=== PATIENT | male | born 1985 | race Caucasian/White ===

== ENCOUNTER 2018-02-21 21:25 | Emergency (ER) | payer MEDICARE, MEDICAID ==
[~2018-02-21] VITALS: Ht 182.9 cm; Wt 59.0 kg
[~2018-02-21 21:25] MED LIST: COLE3.753 PO; ESOM40CA PO
[2018-02-21] MEDS ORDERED: LIDOCAINE 1% VIAL ONE (21:45)
[2018-02-21] MEDS ORDERED: TRIPLE ANTIBIOTIC OINTMENT TP ONE (21:48)
[2018-02-21] MEDS ORDERED: BOOSTRIX VACCINE SYRINGE IM STA (21:56)
--- NOTE | 2018-02-21 22:00 | ER.PDOC ---
General Chief Complaint: Extremities Stated Complaint: LAC ON LEG Time seen by MD: 21:56 Source: patient Exam Limitations: no limitations History of Present Illness Initial Comments Laceration to right knee Onset: just prior to arrival Where: home Context: laceration Severity: mild Allergies: Coded Allergies: No Known Allergies (Unverified , 09/26/14) Home Meds Reported Medications Colesevelam Hcl (WELCHOL) 3.75 Gm Powd.pack, 1.25 GM PO DAILY 09/26/14 Esomeprazole Magnesium (NEXIUM) 40 Mg Capsule.dr, 40 MG PO DAILY 09/26/14 Past Medical History Medical History: other Surgical History: back Social History Smoking: non-smoker Alcohol Use: none Drug Use: none Review of Systems Constitutional: no symptoms reported EENTM: no symptoms reported Respiratory: no symptoms reported Cardiovascular: no symptoms reported Gastrointestinal: no symptoms reported Skin: see HPI All Other Systems: Reviewed and Negative Physical Exam General Appearance: Alert, No Apparent Distress Foot: nml inspection, non-tender, nml color/temp, skin intact Ankle: nml inspection, non-tender, nml ROM, no joint swelling, skin intact Thigh/Hip: nml inspection 1 - Lac Gait: normal Neuro/Vasc/Tendon: sensation nml, motor nml, no vascular compromise, tendon function nml Head/ENT: nml inspection, pharynx nml Neck/Back: nml inspection, non-tender Abdomen: non-tender, pelvis stable ED LACERATION WOUND REPAIR # of Wounds/Lacerations Presen: 1 Wound Location & Length (Requi: Right knee Wound Length (cm): 1 Wound cleaned: betadine Anesthesia: 1% Lidocaine Volume Anesthetic (ccs): 5 Wound's Depth, Shape: linear Irrigated w/ Saline (ccs): 20 Wound Repaired With: sutures Suture Size/Type: 4:0, ethilon Suture Style: interupted Number of Sutures: 3 Sterile Dressing Applied?: Yes Departure Time of Disposition: 21:58 Disposition: 01 HOME, SELF-CARE Impression: Primary Impression: Laceration Condition: Stable Referrals: Sue REESE (PCP) PRIMARY CARE PROVIDER Additional Instructions: Apply Neosporin daily Remove sutures in 7 days at your PCP or ED Duration or Time Spent with Pa: 50 mins DAISY MARION MD Feb 21, 2018 22:00
--- NOTE | 2018-02-21 22:00 | NUR ---
DRESSING NEOSPORIN AND TEFLA DRESSING APPLIED OVER 3 SUTURES TO RIGHT MEDIAL KNEE.
--- NOTE | 2018-02-21 22:03 | NUR ---
TETANUS BOOSTRIX GIVEN TO LEFT DELTOID LOT: [id number] EXP: 06/02/2020
[2018-02-21 22:20] VITALS: BP 136/72
== END 2018-02-21 22:17 | disposition home or self-care (01) ==
LOC: ER 21:25
DX: S81.011A Laceration without foreign body, right knee, initial encounter (principal); Z79.899 Other long term (current) drug therapy; X58.XXXA Exposure to other specified factors, initial encounter; Y93.89 Activity, other specified; Y92.098 Other place in other non-institutional residence as the place of occurrence of the external cause; Y99.8 Other external cause status
CPT/HCPCS: 12001; 90471; 90714; 99283; J2001

== ENCOUNTER 2018-02-27 10:48 | Emergency (ER) | payer MEDICARE, MEDICAID ==
[~2018-02-27] VITALS: Ht 190.5 cm; Wt 61.2 kg
[2018-02-27 11:07] VITALS: BP 28/82
[2018-02-27 11:09] VITALS: BP 28/82
--- NOTE | 2018-02-27 11:16 | ER.PDOC ---
General Chief Complaint: Wound Recheck/Suture Removal Stated Complaint: WOUND CHECK Time seen by MD: 11:11 Source: patient Exam Limitations: no limitations History of Present Illness Treated In Another ED/Practice: No Days Prior To Arrival: 7 Previous ED Treatment: laceration repair Symptoms Since Procedure: no complaints Allergies: Coded Allergies: No Known Allergies (Unverified , 09/26/14) Home Meds Reported Medications Colesevelam Hcl (WELCHOL) 3.75 Gm Powd.pack, 1.25 GM PO DAILY 09/26/14 Esomeprazole Magnesium (NEXIUM) 40 Mg Capsule.dr, 40 MG PO DAILY 09/26/14 Past Medical History Medical History: no pertinent history Surgical History: back Family History Significant Family History: no pertinent family hx Social History Smoking: non-smoker Alcohol Use: none Drug Use: none Reviewed Nursing Reviewed: Nursing Assessment Constitutional: no symptoms reported EENTM: no symptoms reported Respiratory: no symptoms reported Cardiovascular: no symptoms reported Gastrointestinal: no symptoms reported Genitourinary: no symptoms reported Musculoskeletal: no symptoms reported Skin: no symptoms reported Psychiatric/Neurological: no symptoms reported Endocrine: no symptoms reported Hematologic/Lymphatic: no symptoms reported Physical Exam General Appearance: no distress Neuro/Vascular/Tendon: no vascular compromise, sensation nml, no tendon injury , nml ROM Skin: no infection, healing wound Head/ENT: nml inspection Neck/Back: nml inspection Respiratory: chest non-tender CVS: reg. rate & rhythm Comments well appearing wound on the anterior medial aspect of L leg, inferior to medial tibial plateau, 3 sutures removed, no complications Departure Time of Disposition: 11:17 Disposition: 01 HOME, SELF-CARE Impression: Primary Impression: Visit for suture removal Condition: Stable Referrals: JAZIEL AMADOR NP (PCP) PRIMARY CARE PROVIDER Additional Instructions: Follow up with your primary care doctor as needed, return to the ER for signs of infection, redness, swelling or foul odor. Duration or Time Spent with Pa: 30 mins HEBERT FRANCO MD Feb 27, 2018 11:16
== END 2018-02-27 11:25 | disposition home or self-care (01) ==
LOC: ER 10:48
DX: S81.812D Laceration without foreign body, left lower leg, subsequent encounter (principal); X58.XXXD Exposure to other specified factors, subsequent encounter; Z79.899 Other long term (current) drug therapy
CPT/HCPCS: 99281

== ENCOUNTER 2018-08-13 13:48 | Emergency (ER) | payer MEDICARE, MEDICAID ==
[~2018-08-13] VITALS: Ht 182.9 cm; Wt 58.1 kg
--- NOTE | 2018-08-13 13:53 | NUR ---
ARRIVAL PT ARRIVED AMBULATORY TO ER 5 C/O LEFT WRIST PAIN. PT STATES FELL OFF OF A TRAILER DUE TO HIGH WIND. POSSIBLE DEFORMITY NOTED TO LEFT WRIST. WRIST ELEVATED, PT IN POSITION OF COMFORT. EDP NOTIFIED OF PT ARRIVAL.
[2018-08-13 14:03] VITALS: BP 125/93
--- NOTE | 2018-08-13 14:04 | ER.PDOC ---
General Chief Complaint: Extremities Stated Complaint: LEFT HAND INJURY Time seen by MD: 14:00 Source: patient Exam Limitations: no limitations History of Present Illness Initial Comments Pt fell on his left UE, which is deformed on wrist Occurred: just prior to arrival Where: street Severity: moderate Context: fall Allergies: Coded Allergies: No Known Allergies (Unverified , 09/26/14) Home Meds Reported Medications Colesevelam Hcl (WELCHOL) 3.75 Gm Powd.pack, 1.25 GM PO DAILY 09/26/14 Esomeprazole Magnesium (NEXIUM) 40 Mg Capsule.dr, 40 MG PO DAILY 09/26/14 Past Medical History Surgical History: back Social History Smoking: non-smoker Alcohol Use: none Drug Use: none Review of Systems Constitutional: no symptoms reported Musculoskeletal: see HPI All Other Systems: Reviewed and Negative Physical Exam General Appearance: Alert, No Apparent Distress Hand: nml inspection, non-tender, no evidence FB Wrist: tenderness, tenderness snuff box, swelling, deformity (left wrist) Neuro: sensation nml, motor nml Vascular: no vascular compromise Tendons: tendon function nml Forearm/Elbow/Arm: uninjured above wrist Skin: warm/dry Head/ENT: nml inspection, pharynx nml Neck/Back: nml inspection, non-tender Resp/CVS: no resp distress, lungs clear, heart sounds nml, reg. rate & rhythm Abdomen: non-tender, no organomegaly Results/Orders Results/Orders Administered Medications Medications (Trade) Dose Ordered Sig/Corinne Route PRN Reason Start Time Stop Time Status Last Admin Dose Admin Ketorolac Tromethamine (Toradol) 60 mg OT ONCE IM 08/13/18 14:30 08/13/18 14:31 08/13/18 14:14 Departure Time of Disposition: 14:17 Disposition: 01 HOME, SELF-CARE Impression: Primary Impression: Wrist fracture, left Condition: Stable Patient Instructions: Wrist Fracture Referrals: JAZIEL AMADOR NP (PCP) PRIMARY CARE PROVIDER ELISSA RAYA MD Duration or Time Spent with Pa: CECILIA PENA MD Aug 13, 2018 14:04
[2018-08-13] MEDS ORDERED: TORADOL ONE (14:08)
[2018-08-13] MEDS ORDERED: TORADOL IM ONE (14:30)
--- NOTE | 2018-08-13 14:42 | DIREP ---
PROCEDURE:XRAY WRIST MIN 3VW-LT COMPARISON:None. INDICATIONS:Deformity, fall FINDINGS: BONES:Three views of the left wrist. Acute comminuted fracture of the distal left radial metaphysis with extension of the fracture line into the articular surface of the left radius. There is slight dorsal displaced of the distal fracture segments identified. Fracture is also seen involving the tip of the ulnar styloid. The fracture of the distal left radius could be impacted. No acute fracture of the proximal or the distal carpal bones is seen. JOINTS:Normal. SOFT TISSUES:Normal. OTHER:No additional findings. CONCLUSION:Acute impacted fracture involving the distal left radius with the fracture line extending to involve the articular surface. Fracture also identified involving the tip of the ulnar styloid. Slight dorsal displacement of the distal fracture segments of the radius. Dictated by: Tyrone Garber MD on 08/13/2018 at 02:40 PM
[2018-08-13 14:48] VITALS: BP 134/76
[2018-08-17] MEDS ORDERED: LOPE2CAP94 PO (16:14)
[2018-08-17] MEDS ORDERED: ACET-685 PO (16:14)
[2018-08-17] MEDS ORDERED: IBUP-1127 PO (16:14)
== END 2018-08-13 14:40 | disposition home or self-care (01) ==
LOC: ER 13:48
DX: S52.612A Displaced fracture of left ulna styloid process, initial encounter for closed fracture (principal); S52.592A Other fractures of lower end of left radius, initial encounter for closed fracture; Z79.899 Other long term (current) drug therapy; W19.XXXA Unspecified fall, initial encounter; Y93.89 Activity, other specified; Y92.488 Other paved roadways as the place of occurrence of the external cause; Y99.8 Other external cause status
CPT/HCPCS: 29125; 73110; 96372; 99283; J1885

== ENCOUNTER 2018-08-18 00:15 | Day surgery (SDC) | payer MEDICARE, MEDICAID ==
[2018-08-17 16:16] VITALS: BP 124/81
--- NOTE | 2018-08-17 17:59 | PCM.EKG ---
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
[2018-08-17 21:11] LABS: BASOPHIL # 0.1 10^3/uL (0.0-0.1); BASOPHIL % 0.9 % (0.0-0.2); EOSINOPHIL # 0.1 10^3/uL (0.0-0.2); EOSINOPHIL % 1.3 % (0.0-5.0); HEMOGLOBIN 13.8 g/dL (13.9-16.3); LYMPHOCYTES # 1.9 10^3/uL (1.0-4.8); LYMPHOCYTES % 27.5 % (24.0-44.0); MEAN CELL HGB 30.1 pg (26-34); MEAN CELL HGB CONCENTRATION 33.1 g/dL (33-37); MEAN CORP VOLUME 90.8 fL (78-100); MEAN PLATELET VOLUME 9.9 fL (7.8-11.0); MONOCYTES # 0.5 10^3/uL (0.3-0.8); MONOCYTES % 7.4 % (5.0-12.0); NEUTROPHIL # 4.4 10^3/uL (1.8-7.7); NEUTROPHILS % 62.8 % (41.0-85.0); RED CELL DISTRIBUTION WIDTH 12.8 % (11.5-14.5)
[2018-08-17 21:13] LABS: CARBON DIOXIDE 31.2 mmol/L (20.0-32)
[2018-08-18] VITALS (13 sets, daily range): BP systolic 96–134; BP diastolic 34–85
[~2018-08-18] VITALS: Ht 180.3 cm; Wt 55.8 kg
[~2018-08-18 00:15] MED LIST changes: +ACET-685 PO; +IBUP-1127 PO; +LOPE2CAP94 PO
[2018-08-18] MEDS ORDERED: NS 100ML 100 ML IV ONE (05:39)
[2018-08-18] MEDS ORDERED: LACTATED RINGERS 1,000 ML ONE ×3 (05:39→10:19)
[2018-08-18] MEDS ORDERED: ANCEF ONE (05:42)
[2018-08-18] MEDS ORDERED: NAROPIN 0.5% 5 MG/ML VIAL ONE (06:52)
[2018-08-18] MEDS ORDERED: LIDOCAINE 2% VIAL ONE (06:52)
[2018-08-18] MEDS ORDERED: DECADRON ONE (06:52)
[2018-08-18] MEDS ORDERED: ZOFRAN ONE (06:53)
[2018-08-18] MEDS ORDERED: VERSED ONE (06:53)
[2018-08-18] MEDS ORDERED: SUBLIMAZE ONE (06:53)
[2018-08-18] MEDS ORDERED: DILAUDID ONE (06:53)
[2018-08-18] MEDS ORDERED: PRECEDEX IV ONE (06:53)
[2018-08-18] MEDS ORDERED: DIPRIVAN IV ONE (06:53)
[2018-08-18] MEDS ORDERED: TORADOL ONE (06:54)
[2018-08-18] MEDS ORDERED: DICY10CA3 PO (09:12)
[2018-08-18] MEDS: LACTATED RINGERS 1,000 ML IV SCH ×2 (09:23→10:35)
[2018-08-18] MEDS ORDERED: SODIUM CHLORIDE IR ONE (10:52)
[2018-08-18] MEDS ORDERED: XYLOCAINE 2%-EPI 1:100,000 ONE (10:53)
[2018-08-18] MEDS ORDERED: QUELICIN ONE (13:15)
[2018-08-18] MEDS ORDERED: ZOFRAN IV PRN (13:30)
[2018-08-18] MEDS ORDERED: VENTOLIN IH PRN (13:30)
[2018-08-18] MEDS ORDERED: BENADRYL IV PRN (13:30)
[2018-08-18] MEDS ORDERED: TRAM-47 PO (13:30)
[2018-08-18] MEDS ORDERED: PHENERGAN IV PRN (13:30)
[2018-08-18] MEDS ORDERED: DILAUDID IV PRN (13:30)
--- NOTE | 2018-08-18 13:46 | OPH ---
DATE OF SURGERY: 08/18/2018 PREOPERATIVE DIAGNOSIS: Comminuted displaced intraarticular fracture of the left distal radius. POSTOPERATIVE DIAGNOSIS: Comminuted displaced intraarticular fracture of the left distal radius. OPERATIVE PROCEDURE: Open reduction and internal fixation of left distal radius fracture with a Synthes dorsal bridging plate. SURGEON: Smooth Bal M.D. ANESTHESIA: LMA. TOURNIQUET TIME: 79 minutes at 250 mmHg. DRAINS: None. BLOOD LOSS: 10 mL. DESCRIPTION OF INDICATIONS: The patient is a 33-year-old right hand dominant male who fell off the back of a trailer about 5 days ago and suffered a comminuted displaced intraarticular fracture of the left distal radius. He was seen in the office yesterday where the patient was noted to have marked comminution, especially dorsally with dorsal angulation of the fracture as well as impaction. The patient was given conservative versus surgical options and he opted for open reduction and internal fixation. DESCRIPTION OF PROCEDURE: The patient was placed on the operating table in the supine position. An LMA anesthetic was induced without difficulty. The patient had an allergic reaction to the Ancef and therefore it was stopped and he was given some Benadryl and allergic reaction resolved quickly. The patient had the left upper extremity padded. No tourniquet was applied. Left upper extremity was then sterilely prepped and draped. The patient had the fracture reduced with traction and manipulation. AP and lateral C-arm views showed satisfactory reduction. The patient then had a dorsal incision made along the radial border of the long finger metacarpal radial to the extensor tendon. The incision was taken through the skin and the subcutaneous tissues. The tendon was deviated laterally and the dorsal portion of the metacarpal was exposed. The patient then had a second incision made about the distal radius on the radial dorsal side. Incision was taken through the skin and the subcutaneous tissues. The patient had the long thumb extensor tendon identified and it was released through Brinda's tubercle. The patient then had the fourth dorsal compartment elevated off of the dorsal aspect of the distal radius with a 15 blade. A third incision was made more proximal along the subcutaneous border of the radius. The incision was taken through the skin and the subcutaneous tissues. The radial nerve was identified and protected. The plane between the extensor carpi radialis and the brachioradialis was developed and the bone was exposed. The dorsal bridging plate was then passed from distal to proximal beneath the extensor tendons. The plate was initially fixed with a 2.7 cortical screw distally. The patient then had the fracture reduced and the proximal portion of the plate was then reduced down to the bone with a lobster claw clamp. AP and lateral views showed that the fracture was satisfactorily reduced and the plate was in good position. We used a second 2.7 cortical screw to pull the plate down to the bone about the radial shaft. The position of the hardware was felt to be satisfactory. The fracture was felt to be satisfactorily reduced. Therefore, we placed two locking screws distally and 2 locking screws proximally. Final AP and lateral views of the wrist showed satisfactory reduction of the fracture in both planes. The hardware was felt to be in acceptable position. The wounds were then copiously irrigated. The skin was closed with a 3-0 Ethilon in a horizontal mattress method. A compressive dressing and a volar splint was applied. The patient was extubated in the operating room, sent to recovery in stable condition. Smooth Bal MD DR: ROBBIE/leonel JOB# [id number]
--- NOTE | 2018-08-18 13:50 | DIREP ---
PROCEDURE:XRAY WRIST MIN 3VW-LT COMPARISON:[facility], , XRAY WRIST MIN 3VW-LT, 08/13/2018, 01:23 PM. INDICATIONS:S/P ORIF LEFT DISTAL RADIUS FINDINGS: Redemonstrated fractures of the distal radius and ulna status post open reduction and internal fixation and bridging sideplate from the 3rd metacarpal through the radial shaft. Alignment improved from prior exam in near anatomic. CONCLUSION:Improved and near anatomic alignment of the distal radius status post open reduction and internal fixation. Dictated by: Jean Novoa DO on 08/18/2018 at 01:46 PM
== END 2018-08-18 14:54 | disposition home or self-care (01) ==
LOC: SURG 00:15
PROVIDERS: ATTEND Orthopaedic Surgery
DX: S52.572A Other intraarticular fracture of lower end of left radius, initial encounter for closed fracture (principal); W19.XXXA Unspecified fall, initial encounter; Y93.89 Activity, other specified; Y92.89 Other specified places as the place of occurrence of the external cause; Y99.8 Other external cause status; Z88.1 Allergy status to other antibiotic agents; Z79.899 Other long term (current) drug therapy; Z98.890 Other specified postprocedural states; Z83.3 Family history of diabetes mellitus; Z82.49 Family history of ischemic heart disease and other diseases of the circulatory system; Z82.61 Family history of arthritis; Z80.3 Family history of malignant neoplasm of breast
CPT/HCPCS: 25609; 36415; 64415; 73110; 76000; 80051; 85025; 93005; A4217; C1713; J0330; J0690; J1100; J1170; J1885; J2001; J2250; J2405; J2795; J3010; J3490; J7050; J7120 ×3

== ENCOUNTER 2018-11-12 08:00 | Day surgery (SDC) | payer MEDICARE, MEDICAID ==
[~2018-11-12] VITALS: Ht 180.3 cm; Wt 55.8 kg
[2018-11-12] VITALS (10 sets, daily range): BP systolic 118–137; BP diastolic 66–88
[~2018-11-12 08:00] MED LIST changes: +ANCEF ONE; +DECADRON ONE; +DICY10CA3 PO; +DILAUDID ONE; +DIPRIVAN IV ONE; +LACTATED RINGERS 1,000 ML IV SCH; +LACTATED RINGERS 1,000 ML ONE; +LIDOCAINE 2% VIAL ONE; +NS 100ML 100 ML IV ONE; +SUBLIMAZE ONE; +TORADOL ONE; +TRAM-47 PO; +VERSED ONE; +ZOFRAN ONE
[2018-11-12] MEDS ORDERED: MONT10TA6 PO (08:26)
[2018-11-12] MEDS ORDERED: FLUT16SP (08:26)
[2018-11-12] MEDS ORDERED: CETI10TA24 PO (08:26)
[2018-11-12] MEDS ORDERED: SODIUM CHLORIDE IR ONE (08:56)
[2018-11-12] MEDS ORDERED: LIDOCAINE 2% VIAL ONE (08:57)
[2018-11-12] MEDS ORDERED: NARCAN ONE (10:01)
--- NOTE | 2018-11-12 10:20 | OPH ---
DATE OF SURGERY: 11/12/2018 PREOPERATIVE DIAGNOSIS: Healed left distal radius fracture with retained hardware. POSTOPERATIVE DIAGNOSIS: Healed left distal radius fracture with retained hardware. OPERATIVE PROCEDURE: Deep hardware removal, left wrist. SURGEON: Smooth Bal MD ANESTHESIA: LMA. TOURNIQUET TIME: 26 minutes at 285 mmHg. DRAINS: None. BLOOD LOSS: 5 mL. DESCRIPTION OF INDICATIONS: A 33-year-old male approximately 3 months status post ORIF of a comminuted intra-articular left distal radius fracture. His procedure was performed with the dorsal bridging plate. At this point, the patient's fracture is healed and he is admitted for deep hardware removal. DESCRIPTION OF PROCEDURE: The patient had a well-padded tourniquet placed around the left upper extremity. Left upper extremity was sterilely prepped and draped. The arm was exsanguinated with a 6-inch Esmarch. He had been given a LMA anesthetic. The tourniquet was inflated. The patient then had an incision made distally about the third metacarpal and proximally about the radial border of the plate. Incision distally was taken through the skin and the subcutaneous tissues. The tendons were reflected and the plate was identified. The soft tissue over the plate was removed. The screws were removed with the screwdriver. Proximally, the incision was made through the most proximal incision on the dorsal radial aspect of his forearm. Incision was taken through the skin and the subcutaneous tissues. The tendons were retracted and the plate was exposed. The screws were removed. Using a periosteal elevator proximally and distally, the plate was loosened and then the plate was removed from the distal incision. The wounds were then copiously irrigated. The skin edges were injected with 1% lidocaine. The wounds were closed with interrupted 3-0 Ethilon in a horizontal mattress method. A compressive dressing was applied. His tourniquet was released and was extubated in the operating room, sent to recovery in stable condition. Smooth Bal MD DR: ROBBIE/leonel JOB# [id number]
[2018-11-12] MEDS ORDERED: LACTATED RINGERS 1,000 ML SCH (10:30)
[2018-11-12] MEDS ORDERED: ZOFRAN IV PRN (10:30)
[2018-11-12] MEDS ORDERED: SUBLIMAZE IV PRN (10:30)
== END 2018-11-12 12:00 | disposition home or self-care (01) ==
LOC: SDC 08:00
PROVIDERS: ATTEND Orthopaedic Surgery
DX: Z47.2 Encounter for removal of internal fixation device (principal); K21.9 Gastro-esophageal reflux disease without esophagitis; Z98.890 Other specified postprocedural states; Z88.8 Allergy status to other drugs, medicaments and biological substances; Z79.1 Long term (current) use of non-steroidal anti-inflammatories (NSAID); Z79.899 Other long term (current) drug therapy; Z82.49 Family history of ischemic heart disease and other diseases of the circulatory system; Z83.3 Family history of diabetes mellitus; Z80.3 Family history of malignant neoplasm of breast
CPT/HCPCS: 20680; A4217; J0690; J1100; J1170; J1885; J2001 ×2; J2250; J2405; J3010; J3490; J7050; J7120; 76000; J2310